=== PATIENT | male | born 1985 | race Caucasian/White ===

== ENCOUNTER 2022-07-29 07:52 | Outpatient (CLI) | payer BC ==
[2022-07-29] MEDS ORDERED: Iopamidol 300 61% 100 ML VIAL FS ONE (09:47)
== END 2022-07-29 07:53 | disposition home or self-care (01) ==
LOC: CSHCT 07:52
PROVIDERS: ATTEND Urology
DX: N35.916 Unspecified urethral stricture, male, overlapping sites (principal); Z87.898 Personal history of other specified conditions; Z87.448 Personal history of other diseases of urinary system; Z87.440 Personal history of urinary (tract) infections; M54.50 Low back pain, unspecified
CPT/HCPCS: 74178